=== PATIENT | male | born 1990 | race African-American/Black ===

== ENCOUNTER 2025-04-15 02:07 | Emergency (ER) | payer OTHER ==
[~2025-04-15] VITALS: Ht 180.3 cm; Wt 97.5 kg
[2025-04-15] MEDS ORDERED: ZIPRASIDONE MESYLATE 20 MG/VIAL VIAL IM ONE (03:00)
[2025-04-15] MEDS ORDERED: LORAZEPAM INJ 2 MG/ML VIAL ONE (03:00)
[2025-04-15] MEDS: ZIPRASIDONE MESYLATE 20 MG/VIAL VIAL IM ONE (03:10)
[2025-04-15] MEDS: LORAZEPAM INJ 2 MG/ML VIAL IM/IV ONE (03:10)
[2025-04-15] MEDS: IV NS 0.9% 1,000 ML IV ONE ×2 (05:38)
[2025-04-15 05:53] LABS: PLATELET COUNT (AUTO) 209 K/uL (150-450); RED BLOOD CELL COUNT(AUTO) 4.21 MIL/uL (4.5-6.0); RED CELL DISTRIBUTION WIDTH 13.1 % (11.5-15.0); WHITE BLOOD COUNT (AUTO) 4.3 K/uL (4.3-11.0)
[2025-04-15 05:59] LABS: APPEARANCE,URINE CLEAR (CLEAR); BLOOD, URINE NEGATIVE Ery/uL (NEGATIVE); LEUKOCYTE ESTERASE ,URINE NEGATIVE (NEGATIVE); NITRITE, URINE NEGATIVE (NEGATIVE); UGLUCOSE 3+ mg/dL (NEGATIVE)
[2025-04-15 06:07] LABS: ALCOHOL, BLOOD 89 mg/dL (0-10); ASPARTATE AMINOTRANSFERASE 25 U/L (15-37); CALCIUM, SERUM 8.3 mg/dL (8.5-10.1); CREATININE 1.1 mg/dL (0.6-1.3); SODIUM SERUM 135 mmol/L (136-145); TOTAL PROTEIN, SERUM 8.7 g/dL (6.4-8.2); UREA NITROGEN, BLOOD 15 mg/dL (7-18)
[2025-04-15 06:10] LABS: AMPHETAMINE, URINE NEGATIVE (NEGATIVE); BARBITURATE, URINE NEGATIVE (NEGATIVE); BENZODIAZEPINE, URINE NEGATIVE (NEGATIVE); COCCAINE, URINE NEGATIVE (NEGATIVE); OPIATE, URINE NEGATIVE (NEGATIVE)
[2025-04-15 06:12] LABS: CANNABINOID, URINE POSITIVE (NEGATIVE)
[2025-04-15 06:18] LABS: ADD URINE CULTURE NO; SQUAMOUS EPITHELIAL CELL,UR Few /HPF (None Seen)
[2025-04-15 08:33] VITALS: BP 136/71; TEMP 97; O2SAT 98
== END 2025-04-15 08:33 | disposition home or self-care (01) ==
LOC: ER 02:09
DX: F29 Unspecified psychosis not due to a substance or known physiological condition (principal); F20.9 Schizophrenia, unspecified; I50.9 Heart failure, unspecified; Z93.3 Colostomy status; Z79.899 Other long term (current) drug therapy
CPT/HCPCS: 99284; 96372 ×2; 96360; 85025; 81001; 36415; 80053; 82962; 80143; 80320; 80307; J2060; J1200; J7030; J3486; G0480